=== PATIENT | female | born 1980 | race Caucasian/White ===

== ENCOUNTER 2018-10-05 19:17 | Emergency (ER) | payer SELFPAY ==
--- NOTE | 2018-10-05 20:22 | RAD ---
EXAM: CHEST TWO VIEWS: History: Cough. FINDINGS: Heart size is normal. The lungs are clear. IMPRESSION: No acute intrathoracic disease. POS: [id number]
== END 2018-10-05 20:24 | disposition home or self-care (01) ==
LOC: NAV ERS 19:17
DX: J20.9 Acute bronchitis, unspecified (principal)
CPT/HCPCS: 71046